=== PATIENT | female | born 1945 | race Caucasian/White ===

== ENCOUNTER 2017-08-28 21:01 | Emergency (ER) | payer OTHER ==
[~2017-08-28] VITALS: Ht 153.7 cm; Wt 65.5 kg
[2017-08-28 21:07] VITALS: TEMP 36.8; Ht 153.7 cm; Wt 65.5 kg
--- NOTE | 2017-08-28 22:03 | EMERGENCY ROOM VISIT NOTE ---
ED Visit Note First contact with patient: 21:22 The patient was seen and examined with CARLOS Mera. I agree with the history, physical and findings. Please see the note for disposition and details.
--- NOTE | 2017-08-28 22:13 | DIAGNOSTIC IMAGING REPORT ---
L WRIST MIN 3 VIEWS ROUTINE HISTORY: 72 years-old Female L wrist pain acute left-sided wrist pain. Initial exam. No reported trauma. COMPARISON: None available TECHNIQUE: 4 views of the left wrist FINDINGS: Bones are mildly demineralized. Subcortical cystic changes are seen within the lunate and distal ulna. Mild first carpometacarpal osteoarthritis. Mild radiocarpal osteoarthritis. No acute fracture or dislocation. No opaque foreign body. IMPRESSION: Degenerative changes about the wrist as above without acute fracture or dislocation. The above report was generated using voice recognition software. It may contain grammatical, syntax or spelling errors. Electronically signed by: Ezequiel Valenzuela M.D. 08/28/2017 10:12 PM Dictated Date/Time: 08/28/2017 10:11 PM
[2017-08-28 22:49] VITALS: BP 115/78; PULSE 88; O2SAT 98
--- NOTE | 2017-08-30 01:30 | EMERGENCY ROOM VISIT NOTE ---
ED Visit Note First contact with patient: 21:22 Chief Complaint: I fell and hurt my left wrist. History of Present Illness: Ms. Corral is a 72-year-old white female who ambulates into the ED accompanied by her complaining of left wrist pain over the distal radius. Patient reports she was playing a modified tennis game earlier today or proximally 4-5 hours ago. She reports she attempted to hit the ball, slipped and fell on her outstretched right hand and injured her wrist. She also reported that she landed on her hip but does not feel like that needs to be evaluated this time. At the time of the fall she did report she got up from her fall and she was able to continue her matched. Patient reports since the injury she reports that she has been having increasing pain and swelling over the distal radius and into the thenar eminence of the left hand. She describes her pain as accommodation a sharp and throbbing sensation. She rates her discomfort 5/10. Her pain is nonradiating. Her pain worsens with palpation of the distal wrist and thenar eminence and flexion, extension and radial deviation of the wrist. She has not identified any alleviating factors related to the pain. She reports she has not taken a medication for pain prior to arrival at the hospital. She denies any associated symptoms including shoulder pain, elbow pain, proximal forearm pain, hand pain except for at the proximal aspect of the thumb, other finger pain, hand/finger weakness/numbness/tingling. Additionally she denies any previous significant injuries or surgeries to the wrist or hand. Review of Systems: As noted above in history of present illness. Past Medical History: Malignant melanoma, status post appendectomy and removal of cyst from left wrist. Current Medications: Patient denies. Allergies to Medications: Compazine, vancomycin. Social History: Patient is currently employed; she lives with her and feels safe in her home environment; she denies tobacco and alcohol use. Physical Examination: Vital Signs: Date Time Temp Pulse Resp B/P (MAP) Pulse Ox O2 Delivery O2 Flow Rate FiO2 08/28/17 22:49 88 16 115/78 98 08/28/17 21:07 36.8 84 20 148/80 97 Room Air GENERAL: 72-year-old female in mild distress due to pain, nontoxic-appearing, afebrile and hemodynamically stable. NEUROLOGICAL: Awake, alert and oriented to person, place and time. Answering qNormal gait. Good hand eye coordination. No focal motor sensory deficits. SKIN: Warm, dry and pink. No open soft tissue trauma noted. LEFT UPPER EXTREMITY: No gross bony deformity. No tenderness in the shoulder, humerus or proximal forearm. Over the distal radius and ulna patient has moderate tenderness with swelling and bruising that is extending into the thenar eminence area. She also has mild tenderness over the proximal aspect of the first proximal phalange. With the risk stabilize she does have full range of motion in flexion and extension of the wrist and pronation and supination of forearm. She refused to do range of motion levels at the wrist or throughout the thumb but she did have full flexion and extension of all other MCP, PIP and DIP joints. Throughout the hand and thumb the skin was warm and pink and capillary refill is brisk. She is able to distinguish light sensations through all dermatomes. LEFT LOWER EXTREMITY: No gross bony deformity. No shortening or malrotation. No tenderness over the pelvic bony structures or hip joints. Mild tenderness in the anterior aspect of the quadriceps without deformity, swelling or ecchymosis. Patient had full range of motion in flexion, extension, abduction and abduction and internal and a sterile rotation of the hip against resistance. ED Course: Patient is assessed as noted above. Patient's medication list was reviewed. Patient was offered pain medication and refused. Left Wrist X-Rays: Were read by myself and the radiologist and shows no acute fractures or dislocations. Mild osteoarthritis was noted. Patient's case was reviewed with Dr. Whyte; independently assessed the patient we agreed on diagnostic approach, treatment, disposition and plan. Patient was placed in a wrist lacer splint. Patient was educated about today's findings and instructed on her treatment plan ; she verbalized understanding and agreement with this plan. Clinical Impression: Left wrist/hand contusion. Disposition: Patient discharged home in stable condition accompanied by her ; prior to departure she was reassessed and subjectively reported she was pain-free. Plan: Patient was encouraged to alternate ibuprofen and acetaminophen every 3 hours as needed for pain. Patient is encouraged use ice on the area for pain and swelling. Patient was encouraged use splint for 3-6 days or until pain free. Patient was encouraged to follow-up with retail operations specialist if no better in 7 -10 days. Patient was encouraged return ED for worsening/uncontrolled pain, uncontrolled swelling, hand weakness/numbness/tingling or any new/concerning symptoms.
== END 2017-08-28 22:50 | disposition home or self-care (01) ==
LOC: C.EDB 21:03 → C.EDD 22:50
DX: S60.212A Contusion of left wrist, initial encounter (principal); S60.222A Contusion of left hand, initial encounter; W01.0XXA Fall on same level from slipping, tripping and stumbling without subsequent striking against object, initial encounter; Y93.73 Activity, racquet and hand sports; Z85.820 Personal history of malignant melanoma of skin